=== PATIENT | male | born 1970 | race Caucasian/White ===

== ENCOUNTER → 2020-02-01 | Outpatient (CLI) | payer BC | LOC: M.LAB 16:07 | PROVIDERS: ATTEND Internal Medicine Gastroenterology | DX: Z01.812 Encounter for preprocedural laboratory examination (principal); Z12.11 Encounter for screening for malignant neoplasm of colon; Z11.59 Encounter for screening for other viral diseases ==

== ENCOUNTER 2020-11-20 19:45 | Emergency (ER) | payer BC ==
[~2020-11-20] VITALS: Ht 172.7 cm; Wt 90.7 kg
[2020-11-20] MEDS ORDERED: GENTAK5 ML TOP (20:47)
[2020-11-20 20:53] VITALS: BP 155/78
== END 2020-11-20 20:55 | disposition home or self-care (01) ==
LOC: M.ERS 19:45
DX: S05.11XA Contusion of eyeball and orbital tissues, right eye, initial encounter (principal); S05.01XA Injury of conjunctiva and corneal abrasion without foreign body, right eye, initial encounter; F17.210 Nicotine dependence, cigarettes, uncomplicated; W34.09XA Accidental discharge from other specified firearms, initial encounter; Y93.89 Activity, other specified; Y92.89 Other specified places as the place of occurrence of the external cause; Y99.8 Other external cause status